=== PATIENT | female | born 1970 | race Hispanic/Latino ===

== ENCOUNTER 2017-12-12 02:58 | Emergency (ER) | payer SELFPAY ==
[2017-12-12 11:10] VITALS: BP 103/50
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
== END 2017-12-12 11:45 | disposition home or self-care (01) ==
LOC: ED 02:58
DX: S39.012A Strain of muscle, fascia and tendon of lower back, initial encounter (principal); Z87.891 Personal history of nicotine dependence; Y04.8XXA Assault by other bodily force, initial encounter; Y93.89 Activity, other specified; Y99.8 Other external cause status; Y92.009 Unspecified place in unspecified non-institutional (private) residence as the place of occurrence of the external cause
CPT/HCPCS: 99282